=== PATIENT | female | born 1940 | race Caucasian/White ===

== ENCOUNTER 2021-09-16 10:40 | Inpatient (IN) | payer MEDICARE ==
[~2021-09-16] VITALS: Ht 170.2 cm; Wt 81.2 kg
[2021-09-16 11:20] LABS: BASOPHIL 0.7 % (0-2); EOSINOPHIL 2.1 % (0-7); HCT 42.1 % (37.0-47.0); HGB 13.6 g/dl (12.5-16.0); LYMPHOCYTE 52.1 % (15-48); MCH 28.2 pg (25.0-31.0); MCHC 32.3 g/dL (32.0-36.0); MCV 87.2 fL (78.0-100.0); MONOCYTE 3.8 % (0-12); MPV 9.5 fL (6.0-9.5); NEUTROPHIL 40.9 % (41-80); NRBC 0; PLT 347 K/uL (150-400); RBC 4.83 M/uL (4.20-5.40); RDW 13.7 % (11.5-14.0)
[2021-09-16 11:26] LABS: INR 1.07 (0.9-1.2); PROTHROMBIN TIME 13.3 SECONDS (11.8-13.4); PTT 21.5 SECONDS (24.4-34.7)
[2021-09-16 11:41] LABS: D-DIMER 15.43 ug/mLFEU (0.00-0.41)
[2021-09-16 11:57] LABS: ALBUMIN 3.9 g/dL (3.4-5.0); ALKALINE PHOSHATASE 73 U/L (46-116); ALT 28 U/L (14-59); AST 32 U/L (15-37); BILIRUBIN - TOTAL 0.5 mg/dL (0.2-1.0); BUN 27 mg/dL (7-18); CHLORIDE 102 mmol/L (98-107); CO2 (BICARBONATE) 22 mmol/L (21-32); GLUCOSE 211 mg/dL (74-106); LDH 214 U/L (81-234); LIPASE 211 U/L (73-393); MAGNESIUM 2.3 mg/dL (1.8-2.4); POTASSIUM 3.7 mmol/L (3.5-5.1); TOTAL PROTEIN 6.9 g/dL (6.4-8.2)
[2021-09-16 12:04] LABS: C-REACTIVE PROTEIN <0.20 mg/dL (<=0.90)
[2021-09-16 12:14] LABS: LACTIC ACID 3.5 mmol/L (0.4-1.9)
[2021-09-16 13:59] LABS: BILIRUBIN NEGATIVE (NEGATIVE); BLOOD TRACE-INTACT Ery/uL (NEGATIVE); CLARITY CLEAR (CLEAR); COLOR YELLOW (YELLOW); GLUCOSE (U) NORMAL (NORMAL); LEUKOCYTES 3+ Leu/uL (NEGATIVE); NITRITE NEGATIVE (NEGATIVE); PROTEIN 1+ mg/dL (NEGATIVE); SPECIFIC GRAVITY 1.015 (1.001-1.030); UROBILINOGEN 0.2 mg/dL (0.2-1.0); pH 6.5 (5.0-9.0)
[2021-09-16 14:30] LABS: BACTERIA 1+; URINARY RBC RARE
[2021-09-16 19:36] LABS: CORONAVIRUS 2019 SARS-COV-2 NEGATIVE (NEGATIVE); INFLUENZA A NAA NEGATIVE (NEGATIVE)
[2021-09-17 06:30] LABS: BASOPHIL 0.2 % (0-2); EOSINOPHIL 0 % (0-7); HCT 33.9 % (37.0-47.0); HGB 10.7 g/dl (12.5-16.0); LYMPHOCYTE 10.3 % (15-48); MCH 27.7 pg (25.0-31.0); MCHC 31.6 g/dL (32.0-36.0); MCV 87.8 fL (78.0-100.0); MONOCYTE 3.8 % (0-12); MPV 9.5 fL (6.0-9.5); NEUTROPHIL 85.3 % (41-80); NRBC 0; PLT 344 K/uL (150-400); RBC 3.86 M/uL (4.20-5.40); RDW 14.3 % (11.5-14.0); WBC 15.6 K/uL (4.0-10.5)
[2021-09-17 07:00] LABS: ALBUMIN 2.7 g/dL (3.4-5.0); BILIRUBIN - TOTAL 0.4 mg/dL (0.2-1.0); BUN/CREAT RATIO (CALC) 26.1 RATIO; CREATININE 1.15 mg/dL (0.51-0.95); GLOBULIN (CALCULATION) 2.8 g/dL; MAGNESIUM 2.2 mg/dL (1.8-2.4); PHOSPHORUS 4.2 mg/dL (2.6-4.7); POTASSIUM 3.8 mmol/L (3.5-5.1); TOTAL PROTEIN 5.5 g/dL (6.4-8.2)
[2021-09-17 07:13] LABS: BAND 12 % (0-10); NEUTROPHILS(M) 81 % (41-80)
[2021-09-17 07:14] LABS: LYMPHOCYTE(M) 3 % (15-48); MONOCYTE(M) 4 % (0-12); PLATELET ESTIMATE NORMAL; PLATELET MORPHOLOGY NORMAL
[2021-09-17] MEDS ORDERED: METFORMIN HCL500 MG PO (09:01)
[2021-09-17] MEDS ORDERED: PRILOSEC20 MG PO (09:01)
[2021-09-17] MEDS ORDERED: SIMVASTATIN20 MG PO (09:02)
[2021-09-17] MEDS ORDERED: CALCIUM 1,0001 EACH PO (09:03)
[2021-09-17] MEDS ORDERED: B12 ACTIVE1000 MCG PO (09:05)
[2021-09-17] MEDS ORDERED: WOMEN'S DAILY1 EAC1 PO (09:06)
--- NOTE | 2021-09-17 22:01 | NUR ---
PT. GRANDDAUGHTER CALLED OUT STATING THAT THE PT. DOES NOT FEEL WELL. TEMP IS 101.3 AXILLARY. BP 158/64. PT. IS ON BSC LAYING OVER ONTO THE BED. SHE STATES THAT SHE JUST DOESNT FEEL WELL. IS A LITTLE NAUSEATED AND FEELS LIKE THE MIRALAX IS ALL THE WAY UP TO HER THROAT. CELLULAR TOWER CLIMBER NOTIFIED AT THIS TIME. TYLENOL ORDERED WILL CONTINUE TO MONITOR PT. SHANNENRN
[2021-09-18 06:39] LABS: BASOPHIL 0.1 % (0-2); EOSINOPHIL 0 % (0-7); HCT 28.6 % (37.0-47.0); HGB 9.3 g/dl (12.5-16.0); MCH 28.8 pg (25.0-31.0); MCHC 32.5 g/dL (32.0-36.0); MCV 88.5 fL (78.0-100.0); MONOCYTE 4.7 % (0-12); MPV 9.5 fL (6.0-9.5); NEUTROPHIL 82.5 % (41-80); NRBC 0; PLT 248 K/uL (150-400); RBC 3.23 M/uL (4.20-5.40); RDW 14.3 % (11.5-14.0); RETICULOCYTE COUNT 1.4 % (1.0-2.0)
--- NOTE | 2021-09-18 06:49 | NUR ---
PT. TEMP RECHECKED AT 2246. IT WAS 98.1 AND THE PT. STATES THAT SHE FEELS BETTER. SHANNENRN
[2021-09-18 06:52] LABS: IRON % SATURATION 5.1 %SAT (20-50)
[2021-09-18 08:00] LABS: BUN/CREAT RATIO (CALC) 25.6 RATIO; CREATININE 0.82 mg/dL (0.51-0.95); MAGNESIUM 1.9 mg/dL (1.8-2.4); PHOSPHORUS 2.6 mg/dL (2.6-4.7); POTASSIUM 3.1 mmol/L (3.5-5.1)
[2021-09-19 06:24] LABS: BASOPHIL 0.6 % (0-2); EOSINOPHIL 3.1 % (0-7); HCT 27.3 % (37.0-47.0); HGB 8.5 g/dl (12.5-16.0); LYMPHOCYTE 23.5 % (15-48); MCH 27.5 pg (25.0-31.0); MCHC 31.1 g/dL (32.0-36.0); MCV 88.3 fL (78.0-100.0); MONOCYTE 4.8 % (0-12); MPV 9.1 fL (6.0-9.5); NEUTROPHIL 67.7 % (41-80); NRBC 0; PLT 221 K/uL (150-400); RBC 3.09 M/uL (4.20-5.40); RDW 14.2 % (11.5-14.0); WBC 6.5 K/uL (4.0-10.5)
[2021-09-19 06:45] LABS: BUN/CREAT RATIO (CALC) 13.3 RATIO; CREATININE 0.83 mg/dL (0.51-0.95); MAGNESIUM 1.8 mg/dL (1.8-2.4)
[2021-09-19] MEDS ORDERED: NORCO 5-325 TA1 EACH PO (08:54)
[2021-09-19] MEDS ORDERED: METRONIDAZOLE500 MG PO (08:54)
[2021-09-19] MEDS ORDERED: LEVAQUIN500 MG PO (08:54)
[2021-09-19] MEDS ORDERED: MIRALAX17 GM PO (08:54)
[2021-09-19] MEDS ORDERED: BENTYL10 MG PO (08:54)
[2021-09-19] MEDS ORDERED: POTASSIUM CHLO20 ME1 PO (10:36)
--- NOTE | 2021-09-19 12:11 | NUR ---
09/19/21 Ms. Murrieta lives alone and is independent in the community. She has 5 children and 4 stepchildren. No discharge planning needs are anticipated.
--- NOTE | 2021-09-19 15:09 | NUR ---
0970 PT AND DAUGHTER REQUESTED MEDICAL RECORD. OUR PROTOCOL EXPLAINED. MEDICAL RECORDS NOTIFIED FOR APPROPRIATE PAPER WORK. PT DAUGHTER TO OBTAIN MEDICAL RECORDS AT DISCHARGE AND ALSO COMPLETE RECORDS WHEN READY
[2021-09-23 09:08] LABS: ADENOVIRUS F 40/41 Not Detected (Not Detected); ASTROVIRUS Not Detected (Not Detected); C DIFFICILE TOXIN A/B Not Detected (Not Detected); CAMPYLOBACTER Not Detected (Not Detected); CRYPTOSPORIDIUM Not Detected (Not Detected); CYCLOSPORA CAYETANENSIS Not Detected (Not Detected); ENTAMOEBA HISTOLYTICA Not Detected (Not Detected); ENTEROAGGREGATIVE E COLI Not Detected (Not Detected); ENTEROPATHOGENIC E COLI Not Detected (Not Detected); ENTEROTOXIGENIC E COLI Not Detected (Not Detected); GIARDIA LAMBLIA Not Detected (Not Detected); NOROVIRUS GI/GII Not Detected (Not Detected); PLESIOMONAS SHIGELLOIDES Not Detected (Not Detected); ROTAVIRUS A Not Detected (Not Detected); SALMONELLA Not Detected (Not Detected); SAPOVIRUS Not Detected (Not Detected); SHIGA-TOXIN-PRODUCING E COLI Not Detected (Not Detected); SHIGELLA/ENTEROINVASIVE E COLI Not Detected (Not Detected); VIBRIO Not Detected (Not Detected); VIBRIO CHOLERAE Not Detected (Not Detected); YERSINIA ENTEROCOLITICA Not Detected (Not Detected)
== END 2021-09-19 13:57 | disposition home or self-care (01) | DRG 871 ==
LOC: FER 10:40 → FOFB 17:07 → FTCU 17:07
PROVIDERS: Emergency Medicine; Internal Medicine; Nurse Practitioner; Surgery; ADMIT Internal Medicine
PROC: 0DB78ZX Excision of Stomach, Pylorus, Via Natural or Artificial Opening Endoscopic, Diagnostic (ICD-10-PCS; principal; 2021-09-18 13:30)
PROC: 0DBM8ZX Excision of Descending Colon, Via Natural or Artificial Opening Endoscopic, Diagnostic (ICD-10-PCS; 2021-09-18 13:30)
DX: A41.9 Sepsis, unspecified organism (principal); R65.21 Severe sepsis with septic shock; Z20.822 Contact with and (suspected) exposure to COVID-19; K52.9 Noninfective gastroenteritis and colitis, unspecified; K56.41 Fecal impaction; K58.2 Mixed irritable bowel syndrome; E11.9 Type 2 diabetes mellitus without complications; R55 Syncope and collapse; K57.30 Diverticulosis of large intestine without perforation or abscess without bleeding; I10 Essential (primary) hypertension; K62.3 Rectal prolapse; K44.9 Diaphragmatic hernia without obstruction or gangrene; K29.70 Gastritis, unspecified, without bleeding; K21.00 Gastro-esophageal reflux disease with esophagitis, without bleeding; E78.5 Hyperlipidemia, unspecified; E87.6 Hypokalemia; D50.9 Iron deficiency anemia, unspecified; R82.90 Unspecified abnormal findings in urine; Z90.49 Acquired absence of other specified parts of digestive tract; Z98.890 Other specified postprocedural states; Z79.84 Long term (current) use of oral hypoglycemic drugs; Z79.899 Other long term (current) drug therapy; Z87.891 Personal history of nicotine dependence
CPT/HCPCS: 36415; 71045; 71275; 80048; 80053; 81001; 82607; 82728; 82746; 82962; 83540; 83550; 83605; 83615; 83690; 83735; 83880; 84100; 84145; 84439; 84484; 85025; 85379; 85610; 85730; 86140; 87040; 87045; 87046; 88305; 93005; 94010; 94762; C9113; C9399; J1610; J1650; J2250; J2270; J2405; J2543; J2550; J2704; J2916; J3480; J7030; J7050; J7120; Q9967; U0002